=== PATIENT | female | born 1995 | race Caucasian/White ===

== ENCOUNTER 2017-04-19 19:22 | Emergency (ER) | payer OTHER ==
[2017-04-19 19:54] VITALS: BP 129/81; PULSE 83; RESP 16; TEMP 98.1; O2SAT 98
--- NOTE | 2017-04-19 20:43 | EDPHY ---
H & P Stated Complaint: r thumb lac Time Seen by Provider: 04/19/17 20:41 HPI/ROS: HPI: This is a 21-year-old female who presents with Chief Complaint: r thumb lac Location: Right lateral thumb Quality: Laceration Duration: Prior to arrival Signs and Symptoms: No bleeding, no radiation, no numbness, no weakness, no tingling, no incontinence, no decreased range of motion, no swelling, no pain Timing: Acute Severity: [id number] Context: Patient is right-hand dominant, was cooking dinner, with the knife guard was stuck so she yanked really hard and ended up cutting the right thumb lateral aspect. She reports that her nail was broken on the edge prior to this injury. She reports that a blood and had mild pain but denies any pain/ decreased range of motion/paresthesias. Tetanus up-to-date. Modifying Factors: Direct pressure with moderate relief Comment: ROS: see HPI Constitutional: No fever, no chills, no weight loss Eyes: No blurred vision Respiratory: No shortness of breath, no cough Cardiovascular: No chest pain Gastrointestinal: No nausea, no vomiting no diarrhea Genitourinary: No dysuria Extremities: No myalgias Neurologic: No weakness, no numbness Skin: No rashes Hematologic: No bruising, no bleeding MEDICAL/SURGICAL/SOCIAL HISTORY: Medical history: Generally healthy. Does not take any regular medications. Surgical history: Right hip surgery Social history: Student. CONSTITUTIONAL: Well-developed nourished polite and cooperative young adult white female, father at bedside, awake and alert, no obvious distress HEENT: Atraumatic and normocephalic, PERRL, EOMI. Tympanic membranes clear. Oropharynx clear, no exudate and moist pink mucosa. Airway patent. No lymphadenopathy. No meningismus. Cardiovascular: Normal S1/S2, regular rate, regular rhythm, without murmur rub or gallop. PULMONARY/CHEST: Symmetrical and nontender. Clear to auscultation bilaterally. Good air movement. No accessory muscle usage. ABDOMEN: Soft, nondistended, nontender, no rebound, no guarding, no peritoneal signs, no masses or organomegaly. No CVAT. EXTREMITIES: 2/2 radial pulses, strength 5/5, right distal thumb 1.0 cm horizontal, simple, superficial, laceration on lateral aspect extending towards nail. no deformities, no clubbing, no cyanosis or edema. NEUROLOGICAL: no focal neuro deficits. GCS 15. SKIN: Warm and dry, no erythema. no rash. Good capillary refill. Source: Patient, Family (Father) - Personal History LMP (Females 10-55): 1-7 Days Ago Current Tetanus/Diphtheria Vaccine: Yes Current Tetanus Diphtheria and Acellular Pertussis (TDAP): Yes - Medical/Surgical History Hx Asthma: No Hx Chronic Respiratory Disease: No Hx Diabetes: No Hx Cardiac Disease: No Hx Renal Disease: No Hx Cirrhosis: No Hx Alcoholism: No Hx HIV/AIDS: No Hx Splenectomy or Spleen Trauma: No Other PMH: r hip surgery - Social History Smoking Status: Never smoked Constitutional: Initial Vital Signs Temperature (C) 36.7 C 04/19/17 19:51 Heart Rate 83 04/19/17 19:51 Respiratory Rate 16 04/19/17 19:51 Blood Pressure 129/81 H 04/19/17 19:51 O2 Sat (%) 98 04/19/17 19:51 O2 Delivery Mode Room Air Allergies/Adverse Reactions: cefixime [From Suprax] Allergy (Verified 04/19/17 19:51) Home Medications: Medication Instructions Recorded Fluticasone Nasal [Flonase Nasal 04/19/17 [place]] NK [No Known Home Meds] 04/19/17 Medical Decision Making Procedures: Procedure: Laceration repair. Verbal consent was obtained from the patient. The right distal thumb 1.0 cm horizontal, simple, superficial, laceration on lateral aspect extending towards nail was anesthetized in the usual fashion. The wound was irrigated, draped and explored to its base with a gloved finger. There were no deep structures involved. No tendon injury was identified. The wound was repaired with #3, 5- 0 Prolene in a simple interrupted pattern. Good hemostasis was achieved and patient tolerated procedure well. . Clean sterile dressing applied. The procedure was performed by myself. ED Course/Re-evaluation: Wound care and laceration repair Tetanus up-to-date. No signs of neurovascular compromise/tenting of skin/compartment syndrome/ extremities and joints examined above and below area of concern and are neurovascularly intact. Written and verbal wound care instructions provided This patient was seen under the supervision of my secondary supervising physician. I evaluated care for this patient independently. Differential Diagnosis: Friend of nose includes but is not limited to nerve injury, tendon injury, laceration, foreign body. Departure - Departure Disposition: Home, Routine, Self-Care Clinical Impression: Laceration of right thumb without complication Qualifiers: Encounter type: initial encounter Qualified Code(s): S61.011A - Laceration without foreign body of right thumb without damage to nail, initial encounter Condition: Good Instructions: Care For Your Stitches (ED), Finger Laceration (ED) Additional Instructions: Keep the dressing dry and in place for 48 hours. After 48 hours, you may remove the dressing; wash the site daily with mild soap and water; then pat dry. Take Tylenol 650 mg every 4 hours and/or Ibuprofen 600 mg every 8 hours with food as needed for pain. Apply ice for 30 minutes at a time; 2-3 times per day for the next 1-2 days. Please return to the emergency room in 7-10 days to have your sutures removed. Referrals: [facility] [Other] - As per Instructions
== END 2017-04-19 21:30 | disposition home or self-care (01) ==
PROC: 0HQFXZZ Repair Right Hand Skin, External Approach (ICD-10-PCS; principal; 2017-04-19)
DX: S61.011A Laceration without foreign body of right thumb without damage to nail, initial encounter (principal); W26.0XXA Contact with knife, initial encounter; Y99.8 Other external cause status; Y93.G3 Activity, cooking and baking